=== PATIENT | female | born 1985 | race Caucasian/White ===

== ENCOUNTER 2022-01-29 14:08 | Emergency (ER) | payer OTHER ==
[~2022-01-29] VITALS: Ht 162.6 cm; Wt 68.5 kg
[2022-01-29 14:12] VITALS: BP 140/98
[2022-01-29] MEDS ORDERED: METHYLPREDNISOLONE SOD SUCC 125 MG/2 ML VIAL IV ONE (14:45)
[2022-01-29] MEDS ORDERED: B50 MT (15:01)
[2022-01-29] MEDS ORDERED: EPIN0.3P3 IM (15:01)
== END 2022-01-29 15:07 | disposition home or self-care (01) ==
LOC: ER 14:08
DX: L23.81 Allergic contact dermatitis due to animal (cat) (dog) dander (principal); R03.0 Elevated blood-pressure reading, without diagnosis of hypertension
CPT/HCPCS: 96374; 99283; J2930